=== PATIENT | female | born 1950 | race Caucasian/White ===

== ENCOUNTER 2016-07-24 23:00 | Emergency (ER) | payer OTHER ==
[~2016-07-24 23:00] MED LIST: ACTOPLUS M15 MG/850 PO; ASAB PO; AT25 PO; ATV1 PO; BACLOFEN PO; BUSPAR30 MG PO; CADUET10 MG/40 M PO; CEFT5 PO; CEFTIN PO; CLARIT10 PO; COQ-10200 MG OR; COQ10100 MG OR; COREG6 PO; CYMBALTA30 PO; FISH-EPA1000 MG PO; FLEX PO; GGACUDL PO; KAPIDEX60 MG PO; LAMICTAL10 PO; LANTUS SC; LIOR10 PO; LIPITOR40 PO; LOTE40 PO; MIRAPEX250 PO; NEUR300 PO; NITROQUICK0.4 MG SL; NITROSTAT0.4 MG SL; NORV10 PO; NOVOLOG SC; PRILOSEC40 MG PO; PROAIR HFA INH; SOMATAB PO; SYSTANE OP; SYSTANE OPH; TESS PO; TOUJEO SC; TOVIAZ4 MG PO; ULTRAM50 PO; VALTREX5 PO; VITAMIN D1000 UNI1 PO; VITAMIN D31000 UNIT PO; VITD PO; VITE PO; ZITHROMAX500 MG PO; ZOCOR20 PO; ZOCOR40 PO
[2016-09-27] MEDS ORDERED: KLOR-CON 1010 MEQ PO (14:34)
[2016-09-27] MEDS ORDERED: OMEGA XL (14:34)
[2016-09-27] MEDS ORDERED: ULTRAM50 PO (14:40)
== END 2016-07-25 00:50 | disposition home or self-care (01) ==
LOC: ER 23:00
DX: S61.552A Open bite of left wrist, initial encounter (principal); S60.812A Abrasion of left wrist, initial encounter; I12.9 Hypertensive chronic kidney disease with stage 1 through stage 4 chronic kidney disease, or unspecified chronic kidney disease; N18.9 Chronic kidney disease, unspecified; F41.9 Anxiety disorder, unspecified; F32.9 Major depressive disorder, single episode, unspecified; E11.9 Type 2 diabetes mellitus without complications; Z91.048 Other nonmedicinal substance allergy status; Z79.899 Other long term (current) drug therapy; Z79.4 Long term (current) use of insulin; Z79.82 Long term (current) use of aspirin; W55.01XA Bitten by cat, initial encounter
CPT/HCPCS: 90471; 90714; 99283